=== PATIENT | male | born 1965 | race Caucasian/White ===

== ENCOUNTER 2023-01-16 10:18 | Outpatient (CLI) | payer OTHER, SELFPAY ==
--- NOTE | 2023-01-16 10:34 | XR_ITS ---
WS: [id number] Lumbar spine, 3 views, 01/16/2023 Clinical Data: ENCOUNTER FOR DISABILITY DETERMINATIONS Comparison: None. Findings: No compression fractures or subluxation is seen. There is degenerative disc narrowing at L5-S1. There are anterior osteophytes of the lower thoracic and all the lumbar vertebral bodies. The transverse p rocesses and SI joints are normal. XR/XR lumbar spine 2-3V* [id number] Impression: 1. Degenerative disc narrowing at L5-S1. 2. Anterior osteophytes of the lumbar vertebral bodies
--- NOTE | 2023-01-16 10:35 | XR_ITS ---
WS: [id number] Right knee, 3 views 01/16/2023 Clinical Data: ENCOUNTER FOR DISABILITY DETERMINATIONS Comparison: Right knee, 06/04/2012 Findings: No fractures or dislocations are seen. The medial joint compartment is narrow with spurring of the me dial femoral condyle and medial tibial plateau. There is minimal spurring of the posterior patella. T he soft tissues are unremarkable. XR/XR knee RT 1-2V [id number] Impression: Mild osteoarthritis of the right knee with medial joint compartment narrowing, spurring of the medial femoral condyle and medial tibial plateau and posterior spurring of the right patella Kellgren-René Classification: grade 2 (minimal): definite osteophytes and p ossible joint space narrowing
== END 2023-01-16 10:19 | disposition home or self-care (01) ==
PROVIDERS: PCP Internal Medicine; Visit Provider Dermatology
DX: M48.07 Spinal stenosis, lumbosacral region (principal); M25.78 Osteophyte, vertebrae; M25.761 Osteophyte, right knee; M17.11 Unilateral primary osteoarthritis, right knee; M76.891 Other specified enthesopathies of right lower limb, excluding foot; G89.29 Other chronic pain; M54.50 Low back pain, unspecified
CPT/HCPCS: 72100; 73560